=== PATIENT | male | born 1955 | race Caucasian/White ===

== ENCOUNTER 2021-04-05 23:19 | Emergency (ER) | payer OTHER ==
[~2021-04-05] VITALS: Ht 170.2 cm; Wt 75.0 kg
--- NOTE | 2021-04-05 23:35 | NUR ---
MD Kai Wang at bedside to do MSE.
[2021-04-05] MEDS ORDERED: NORT25CA PO (23:44)
[2021-04-05] MEDS ORDERED: MONT10TA22 PO (23:44)
[2021-04-05] MEDS ORDERED: CLON0.5T4 PO (23:44)
[2021-04-05] MEDS ORDERED: GABA-532 PO (23:44)
[2021-04-05] MEDS ORDERED: BUSP10TA3 PO (23:44)
[2021-04-05] MEDS ORDERED: CYCL5TAB PO (23:44)
[2021-04-05] MEDS ORDERED: FURO40TA5 PO (23:44)
[2021-04-05] MEDS ORDERED: FENO160T PO (23:44)
[2021-04-05] MEDS ORDERED: MECL-159 PO (23:44)
[2021-04-05] MEDS ORDERED: FINA5TAB11 PO (23:44)
[2021-04-05] MEDS ORDERED: CLOP75TA15 PO (23:44)
[2021-04-05] MEDS ORDERED: CARV25TA2 PO (23:44)
[2021-04-05] MEDS ORDERED: GABA600T12 PO (23:44)
[2021-04-05] MEDS ORDERED: LISI20TA30 PO (23:44)
[2021-04-05] MEDS ORDERED: DULO60CA45 PO (23:44)
[2021-04-05] MEDS ORDERED: DICY10CA13 PO (23:44)
[2021-04-05] MEDS ORDERED: LORAZEPAM 0.5 MG TABLET PO ONE (23:45)
--- NOTE | 2021-04-05 23:55 | NUR ---
Patient resting on bed, observing environment. No acute distress is noted at this time.
[2021-04-05] MEDS ORDERED: LORAZEPAM 0.5 MG TABLET ONE (23:58)
--- NOTE | 2021-04-06 00:43 | NUR ---
MD Wang requested ACCUCHECK blood sugar of patient. Result was 119 and MD Wang made aware.
--- NOTE | 2021-04-06 00:44 | NUR ---
Patient sleeping, eyes closed. No acute distress noted at this time.
[2021-04-06 01:15] VITALS: BP 132/76
--- NOTE | 2021-04-06 01:15 | NUR ---
Patient discharged to home in stable condition. Written and verbal after care instructions given. Patient verbalizes understanding of instructions. Stressed follow up or return to ER for worsening s/s. Patient ambulates with steady gait, V/S stable, left with all personal belongings. Patient advised to not drive.
--- NOTE | 2021-04-06 01:15 | NUR ---
Note undone in [facility] - 04/06/21 at 0133 by INOCENTE Patient discharged to home in stable condition. Written and verbal after care instructions given. Patient verbalizes understanding of instructions. Stressed follow up or return to ER for worsening s/s. Patient ambulates with steady gait, V/S stable, left with all personal belongings. Addendum: 04/06/21 at 0130 by INOCENTE Amendment undone in ED - 04/06/21 at 0133 by INOCENTE Patient advised to not drive.
== END 2021-04-06 01:15 | disposition home or self-care (01) ==
LOC: ER 23:19
DX: R41.0 Disorientation, unspecified (principal); R42 Dizziness and giddiness; T42.6X5A Adverse effect of other antiepileptic and sedative-hypnotic drugs, initial encounter; Y92.89 Other specified places as the place of occurrence of the external cause; I25.2 Old myocardial infarction; Z87.448 Personal history of other diseases of urinary system; Z79.02 Long term (current) use of antithrombotics/antiplatelets; R94.31 Abnormal electrocardiogram [ECG] [EKG]; F41.9 Anxiety disorder, unspecified
CPT/HCPCS: 93005; A4663

== ENCOUNTER 2022-06-21 02:04 | Emergency (ER) | payer MEDICARE, OTHER ==
[~2022-06-21] VITALS: Ht 167.6 cm; Wt 73.5 kg
[~2022-06-21 02:04] MED LIST: BUSP10TA3 PO; CARV25TA2 PO; CLON0.5T4 PO; CLOP75TA15 PO; CYCL5TAB PO; DICY10CA13 PO; DULO60CA45 PO; FENO160T PO; FINA5TAB11 PO; FURO40TA5 PO; GABA-532 PO; GABA600T12 PO; LISI20TA30 PO; MECL-159 PO; MONT10TA22 PO; NORT25CA PO
--- NOTE | 2022-06-21 02:45 | NUR ---
Dr. Finley at bedside, MSE in progress.
[2022-06-21] MEDS ORDERED: TDAP DIPH,PERTUSS,TET VAC/PF 0.5 ML DISP.SYRIN IM ONE ×2 (03:00)
[2022-06-21] MEDS ORDERED: ACETAMINOPHEN ES 500 MG TABLET PO ONE (03:00)
--- NOTE | 2022-06-21 03:41 | NUR ---
Patient discharged to home in stable condition. Written and verbal after care instructions given. Patient verbalizes understanding of instructions. Stressed follow up or return to ER for worsening s/s. pt ambulated with steady gait. AOx4
[2022-06-21 03:44] VITALS: BP 148/75
== END 2022-06-21 03:44 | disposition home or self-care (01) ==
LOC: ER 02:10
DX: S97.111A Crushing injury of right great toe, initial encounter (principal); S91.101A Unspecified open wound of right great toe without damage to nail, initial encounter; W20.8XXA Other cause of strike by thrown, projected or falling object, initial encounter; W23.0XXA Caught, crushed, jammed, or pinched between moving objects, initial encounter; Y92.018 Other place in single-family (private) house as the place of occurrence of the external cause; I25.2 Old myocardial infarction; Z79.02 Long term (current) use of antithrombotics/antiplatelets; Z79.899 Other long term (current) drug therapy
CPT/HCPCS: 73660; 90715; A4663; A9150

== ENCOUNTER 2022-06-23 23:14 | Emergency (ER) | payer MEDICARE, OTHER ==
[~2022-06-23] VITALS: Ht 167.6 cm; Wt 73.5 kg
--- NOTE | 2022-06-23 23:41 | NUR ---
pt in room 5a states he was here a few days and needs to have his wound checked. right foot, first toe.
--- NOTE | 2022-06-23 23:43 | NUR ---
DR Ivy in room MSE in progress
--- NOTE | 2022-06-24 00:02 | NUR ---
Patient discharged to home in stable condition. Written and verbal after care instructions given. Patient verbalizes understanding of instructions. Stressed follow up or return to ER for worsening s/s.
[2022-06-24 00:03] VITALS: BP 125/70
== END 2022-06-24 00:04 | disposition home or self-care (01) ==
LOC: ER 23:16
DX: S91.111D Laceration without foreign body of right great toe without damage to nail, subsequent encounter (principal); X58.XXXD Exposure to other specified factors, subsequent encounter; I25.2 Old myocardial infarction; Z79.02 Long term (current) use of antithrombotics/antiplatelets
CPT/HCPCS: A4663